=== PATIENT | female | born 1950 | race Caucasian/White ===

== ENCOUNTER 2022-01-23 08:15 | Emergency (ER) | payer MEDICARE, BC ==
[~2022-01-23] VITALS: Ht 172.7 cm; Wt 65.0 kg
--- NOTE | 2022-01-23 08:17 | NUR ---
kitty JUNIOR. Addendum: 01/23/22 at 0930 by AKIRA incorrect pt.
[2022-01-23] MEDS ORDERED: famotidine/PF 10 mg/ml inj IV ONE (08:35)
[2022-01-23] MEDS ORDERED: mag hydrox/Alum hydrox/simeth 30ml oral suspension PO ONE (08:35)
[2022-01-23] MEDS ORDERED: normal saline 1000ml 1,000 ML IV ONE (08:35)
[2022-01-23] MEDS ORDERED: ondansetron/PF 4mg/2ml inj IV ONE (08:35)
[2022-01-23] MEDS ORDERED: LIDOcaine Viscous 15ml cup MM ONE (08:35)
[2022-01-23] MEDS ORDERED: pantoprazole 40MG/NS 100ML BAG 100 ML IV ONE (08:35)
--- NOTE | 2022-01-23 09:28 | NUR ---
Beddings changed,pt repositoned and changed into a gown,requesting tylenol for sciatic pain,Dr. Castro aware.Awaiting for sw to see pt. Addendum: 01/23/22 at 0930 by AKIRA incorrect pt.
[2022-01-23 09:36] LABS: BASOPHILS % (AUTO) 0.5 % (0-1); EOSINOPHILS # (AUTO) 0.1 X10'3 (0-0.9); EOSINOPHILS % (AUTO) 0.8 % (0-6); HEMATOCRIT 34.1 % (35.0-45.0); HEMOGLOBIN 11.9 g/dl (12.0-16.0); LYMPHOCYTES # (AUTO) 0.8 X10'3 (1.1-4.8); LYMPHOCYTES % (AUTO) 10.1 % (21-51); MEAN CORPUSCULAR HEMOGLOBIN 30.4 PG (27.0-31.0); MEAN CORPUSCULAR HGB CONC 34.9 g/dL (33.0-36.5); MEAN CORPUSCULAR VOLUME 87.1 FL (78-98); MEAN PLATELET VOLUME 6.8 FL (7.4-10.4); MONOCYTES # (AUTO) 0.7 X10'3 (0-0.9); MONOCYTES % (AUTO) 8.1 % (2-12); NEUTROPHILS # (AUTO) 6.7 X10'3 (1.8-7.7); NEUTROPHILS % (AUTO) 80.5 % (42-75); PLATELET COUNT 408 X10'3 (140-440); RED BLOOD COUNT 3.92 X10'6 (4.20-5.60); RED CELL DISTRIBUTION WIDTH 13.6 % (11.5-14.5); WHITE BLOOD COUNT 8.4 X10'3 (4.5-11.0)
[2022-01-23 09:53] LABS: ALANINE AMINOTRANSFERASE 20 U/L (12-78); ALBUMIN 2.8 G/DL (3.4-5.0); ALBUMIN/GLOBULIN RATIO 0.7 (1.1-1.5); ALKALINE PHOSPHATASE 96 IU/L (46-116); ANION GAP 9 (8-16); ASPARTATE AMINO TRANSFERASE 13 U/L (10-37); BILIRUBIN,TOTAL 0.5 MG/DL (0.1-1.0); BLOOD UREA NITROGEN 13 MG/DL (7-18); BUN/CREATININE RATIO 16.9 (6.6-38.0); CALCIUM 8.7 MG/DL (8.5-10.1); CHLORIDE 102 MMOL/L (99-107); CREATININE 0.77 MG/DL (0.40-0.90); GLUCOSE 116 MG/DL (70-104); POTASSIUM 3.3 MMOL/L (3.5-5.1); SODIUM 136 MMOL/L (135-145); TOTAL CARBON DIOXIDE 24.9 MMOL/L (24-32); TOTAL PROTEIN 7.1 G/DL (6.4-8.2); eGFR 74 ML/MIN
[2022-01-23 10:00] LABS: MAGNESIUM 1.9 MG/DL (1.5-2.4)
[2022-01-23] MEDS ORDERED: PANT-47 PO (10:57)
[2022-01-23] MEDS ORDERED: ONDA8TAB13 PO (10:57)
[2022-01-23 11:24] VITALS: BP 113/72
== END 2022-01-23 11:28 | disposition home or self-care (01) ==
LOC: ER 08:16
DX: R07.9 Chest pain, unspecified (principal); Z20.822 Contact with and (suspected) exposure to COVID-19; R11.2 Nausea with vomiting, unspecified; R12 Heartburn; K21.9 Gastro-esophageal reflux disease without esophagitis; F32.A Depression, unspecified; Z79.899 Other long term (current) drug therapy
CPT/HCPCS: 36415; 71045; 80053; 83735; 83880; 84484; 85025; 85610; 93005; 96361; 96365; 96375; 99285; C9113; J2405; J3490; J7030

== ENCOUNTER 2022-05-26 13:10 | Outpatient (CLI) | payer MEDICARE, BC ==
[~2022-05-26 13:10] MED LIST: BARIUM SULFATE 700 MG TABLET PO ONE; ONDA8TAB13 PO; PANT-47 PO; barium sulfate 450ml oral suspension ONE
== END 2022-05-26 23:59 | disposition home or self-care (01) ==
LOC: RAD 13:10
PROVIDERS: ATTEND Surgery
DX: K44.9 Diaphragmatic hernia without obstruction or gangrene (principal); K22.4 Dyskinesia of esophagus
CPT/HCPCS: 74220

== ENCOUNTER 2022-08-06 06:44 | Day surgery (SDC) | payer MEDICARE, BC ==
[~2022-08-06] VITALS: Ht 170.2 cm; Wt 77.3 kg
[~2022-08-06 06:44] MED LIST changes: -BARIUM SULFATE 700 MG TABLET PO ONE; -barium sulfate 450ml oral suspension ONE
[2022-08-06 06:53] VITALS: BP 116/72
[2022-08-06] MEDS ORDERED: fentaNYL/PF 50MCG/1 ML 2ML syringe ONE (07:01)
[2022-08-06] MEDS ORDERED: MIDAZolam 1 MG/ML 5ML VIAL ONE (07:01)
[2022-08-06] MEDS ORDERED: LIDOcaine Viscous 15ml cup ONE (07:01)
[2022-08-06] MEDS ORDERED: CITA20TA28 PO (07:09)
[2022-08-06] MEDS ORDERED: BUPR75TA8 PO (07:09)
[2022-08-06] MEDS ORDERED: OMEP40CA21 PO (07:11)
[2022-08-06 07:45] VITALS: BP 115/71
[2022-08-06 07:55] VITALS: BP 116/56
[2022-08-06 08:05] VITALS: BP 114/75
[2022-08-06 08:15] VITALS: BP 125/71
== END 2022-08-06 08:20 | disposition home or self-care (01) ==
LOC: GI LAB 06:44
PROVIDERS: ATTEND Surgery
DX: K21.00 Gastro-esophageal reflux disease with esophagitis, without bleeding (principal); K44.9 Diaphragmatic hernia without obstruction or gangrene; Z98.890 Other specified postprocedural states; Z85.71 Personal history of Hodgkin lymphoma
CPT/HCPCS: 43239; J2250; J3010; J7030; Z7512; 88305; 99152; A4620

== ENCOUNTER 2023-08-31 10:22 | Observation (INO) | payer MEDICARE, BC ==
[2023-08-27 11:41] LABS: BASOPHILS % (AUTO) 0.8 % (0-1); EOSINOPHILS # (AUTO) 0.2 X10'3 (0-0.9); EOSINOPHILS % (AUTO) 3.3 % (0-6); LYMPHOCYTES # (AUTO) 1.4 X10'3 (1.1-4.8); LYMPHOCYTES % (AUTO) 25.7 % (21-51); MEAN CORPUSCULAR HEMOGLOBIN 29.8 PG (27.0-31.0); MEAN CORPUSCULAR HGB CONC 33.4 g/dL (33.0-36.5); MEAN CORPUSCULAR VOLUME 89.4 FL (78-98); MEAN PLATELET VOLUME 7.1 FL (7.4-10.4); MONOCYTES # (AUTO) 0.3 X10'3 (0-0.9); MONOCYTES % (AUTO) 6.1 % (2-12); NEUTROPHILS # (AUTO) 3.4 X10'3 (1.8-7.7); NEUTROPHILS % (AUTO) 64.1 % (42-75); PRE OP HEMATOCRIT 39.5 % (35.0-45.0); PRE OP HEMOGLOBIN 13.2 g/dL (12.0-16.0); PRE OP PLATELET COUNT 359 X10'3 (140-440); PRE OP WHITE BLOOD COUNT 5.3 10'3 (4.8-10.8); RED BLOOD COUNT 4.42 X10'6 (4.20-5.60); RED CELL DISTRIBUTION WIDTH 14.2 % (11.5-14.5)
[2023-08-27 12:14] LABS: ALBUMIN 3.4 G/DL (3.4-5.0); ALBUMIN/GLOBULIN RATIO 0.9 (1.1-1.5); ALKALINE PHOSPHATASE 101 IU/L (46-116); BLOOD UREA NITROGEN 12 MG/DL (7-18); BUN/CREATININE RATIO 16.2 (10.0-20.0); CALCIUM 8.3 MG/DL (8.5-10.1); CHLORIDE 107 MMOL/L (99-107); CREATININE 0.74 MG/DL (0.40-0.90); PRE OP ALT 19 U/L (30-65); PRE OP ANION GAP 7 (8-16); PRE OP AST 12 U/L (10-37); PRE OP BILIRUB, TOTAL 0.4 MG/DL (0.0-1.0); PRE OP GLUCOSE 90 MG/DL (70-104); PRE OP POTASSIUM 3.9 MMOL/L (3.4-5.1); PRE OP SODIUM 143 MMOL/L (135-145); TOTAL PROTEIN 7.1 G/DL (6.4-8.2); eGFR 77 ML/MIN
[2023-08-31] VITALS (36 sets, daily range): BP systolic 112–163; BP diastolic 67–127; PULSE 74–97; RESP 9–19; TEMP 97.9–98; O2SAT 94–100
[~2023-08-31] VITALS: Ht 170.2 cm; Wt 85.3 kg
[2023-08-31] MEDS: potassium CL 20mEq in D5-1/2NS 1,000 ML IV SCH (01:15)
[~2023-08-31 10:22] MED LIST changes: +BUPR-72 PO; +LIDOcaine 1% 30ml preserv. free vial ONE; -ONDA8TAB13 PO; -PANT-47 PO
[2023-08-31] MEDS: ringers solution, lacted 1,000 ML IV SCH ×2 (11:42→23:05)
[2023-08-31] MEDS: famotidine 20mg tablet PO ONE (11:43)
[2023-08-31] MEDS: cefazolin 2gm/D5W 100mL 100 ML IV ONE (11:50)
[2023-08-31] MEDS ORDERED: neostigmine methylsulfate 1 MG/ML 10ml vial ONE (12:43)
[2023-08-31] MEDS ORDERED: sevoflurane 250ml liquid IH ONE (12:43)
[2023-08-31] MEDS ORDERED: MIDAZolam 1 MG/ML 5ML VIAL ONE (12:51)
[2023-08-31] MEDS ORDERED: fentaNYL /PF 50mcg/ml 5ml ampule ONE (12:51)
[2023-08-31] MEDS ORDERED: dexamethasone sod phosphate 4mg/ml inj. ONE (12:59)
[2023-08-31] MEDS ORDERED: rocuronium 10mg/ml inj IV ONE ×2 (12:59)
[2023-08-31] MEDS ORDERED: LIDOcaine 2% (20mg/ml) 5ml vial ONE (12:59)
[2023-08-31] MEDS ORDERED: propofol inj 20 ML IV ONE (12:59)
[2023-08-31] MEDS ORDERED: glycopyrrolate 0.2mg/ml inj ONE (13:00)
[2023-08-31] MEDS ORDERED: ondansetron/PF 4mg/2ml inj ONE (13:01)
[2023-08-31] MEDS ORDERED: acetaminophen 1,000mg/100ml IV 100 ML IV ONE (13:03)
[2023-08-31] MEDS ORDERED: morphine 2 MG/ML inj. syringe IV PRN (13:20)
[2023-08-31] MEDS ORDERED: ondansetron/PF 4mg/2ml inj IV PRN ×2 (13:20→15:00)
[2023-08-31] MEDS ORDERED: fentaNYL/PF 50MCG/1 ML 2ML syringe IV PRN (13:20)
[2023-08-31] MEDS ORDERED: hydrALAZINE 20mg/ml inj. IV PRN (13:20)
[2023-08-31] MEDS ORDERED: labetalol 20mg/4ml (5mg/ml) syringe IV PRN (13:20)
[2023-08-31] MEDS: BUPIVAcaine 2.5mg/ml inj 50ml vial (contains preservative) ONE (13:54)
[2023-08-31] MEDS: LIDOcaine 1% 30ml preserv. free vial IJ ONE (13:55)
[2023-08-31] MEDS ORDERED: naloxone 0.4 mg/ml inj IV PRN (15:00)
[2023-08-31] MEDS: morphine 4 MG/ML inj SYRINge IV PRN (15:16)
[2023-08-31] MEDS: HYDROmorph/NS 0.2 mg/ml PCA 100 ML IV SCH (15:32)
[2023-08-31] MEDS: fentaNYL/PF 50MCG/1 ML 2ML syringe IV PRN (16:20)
[2023-08-31] MEDS: albuterol 2.5 MG/3 ML nebule NEB SCH (19:00)
[2023-08-31] MEDS: zolpidem 5mg tablet PO PRN (20:38)
[2023-08-31] MEDS: buPROPion SR 150mg tablet PO SCH (20:38)
[2023-08-31] MEDS: normal saline 1000ml 1,000 ML IV SCH (23:06)
[2023-09-01 02:00] VITALS: BP 121/69; PULSE 77; RESP 16; TEMP 97.8; O2SAT 93
[2023-09-01 06:00] VITALS: BP 138/69; PULSE 74; RESP 16; TEMP 97.4; O2SAT 96
[2023-09-01 07:30] VITALS: RESP 12
[2023-09-01] MEDS: oxyCODONE/APAP 5-325mg tablet PO ONE (08:06)
[2023-09-01] MEDS: enoxaparin 40mg/0.4ml syringe SQ SCH (08:07)
[2023-09-01 10:00] VITALS: BP 117/64; PULSE 71; RESP 18; TEMP 98; O2SAT 97
[2023-09-01] MEDS ORDERED: PER5325T PO (11:27)
[2023-09-01 11:50] VITALS: BP 143/94; PULSE 72; RESP 14; TEMP 98.4; O2SAT 95
[2023-09-01] MEDS: oxyCODONE/APAP 5-325mg tablet PO PRN (12:00)
== END 2023-09-01 13:47 | disposition home or self-care (01) ==
LOC: PAS 10:22 → PAS IN 14:59 → PACU 15:00 → SUR 3N 19:59
PROVIDERS: ADMIT Surgery; ATTEND Surgery
DX: K44.9 Diaphragmatic hernia without obstruction or gangrene (principal); K21.9 Gastro-esophageal reflux disease without esophagitis; M19.90 Unspecified osteoarthritis, unspecified site; F41.8 Other specified anxiety disorders; C81.90 Hodgkin lymphoma, unspecified, unspecified site; Z79.899 Other long term (current) drug therapy
CPT/HCPCS: 36415; 43282; 71045; 80053; 82948; 85025; 93005; 96365; 96366; 96372; 96375; 96376; C1781; G0378; J0131; J0690; J1100; J1170; J1650; J2250; J2270; J2405; J2704; J2710; J3010; J3480; J3490; J7120; A4615; A4618; C1758

== ENCOUNTER 2025-01-10 10:23 | Emergency (ER) | payer MEDICARE, BC ==
[~2025-01-10] VITALS: Ht 170.2 cm; Wt 73.7 kg
[~2025-01-10 10:23] MED LIST changes: -LIDOcaine 1% 30ml preserv. free vial ONE; +PER5325T PO
[2025-01-10 10:26] VITALS: O2SAT 96
[2025-01-10 10:40] VITALS: RESP 18
[2025-01-10 10:51] LABS: MEAN PLATELET VOLUME 7.2 FL (7.4-10.4); RED CELL DISTRIBUTION WIDTH 14.7 % (11.5-14.5)
[2025-01-10 10:58] LABS: CREATININE 1.19 MG/DL (0.40-0.90); TOTAL CARBON DIOXIDE 25.1 MMOL/L (24-32); eCRCL 41 ML/MIN; eGFR 44 ML/MIN
--- NOTE | 2025-01-10 11:08 | RADIOLOGY REPORT ---
CLINICAL INDICATION: WRIST PAIN TECHNIQUE: Right DI WRIST, COMPLETE (3VW MIN) Comparison: None FINDINGS/IMPRESSION: : There is no evidence of acute fracture or dislocation. Soft tissues are unremarkable. Osteopenia. Advanced degenerative changes of the radiocarpal joint space. Possible postsurgical resection or chronic erosive changes of the distal pole of the scaphoid at the 1st [facility].
--- NOTE | 2025-01-10 11:32 | ELECTROCARDIOGRAPH REPORT ---
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 David Jean Measurements Intervals [place] Rate: 59 P: 30 ND: 177 QRS: 43 QRSD: 87 T: 15 QT: 439 QTc: 435 Interpretive Statements Sinus bradycardia Electronically Signed On 01-17-2025 20:06:[address] David Jean Please click the below link to view image of tracing.
--- NOTE | 2025-01-10 11:45 | Physician Documentation ---
History of Present Illness ~ Chief Complaint: Wrist pain Stated Complaint: LOW BLOOD PRESSURE Time Seen by MD: 10:36 Primary Medical Doctor: NONE Mode of Arrival: POV, Ambulatory HPI THIS VERY PLEASANT 74-YEAR-OLD FEMALE PRESENTS TO THE ED WITH A COMPLAINT OF RIGHT WRIST PAIN AFTER FALLING YESTERDAY DUE TO HER DOG TRIPPING HER. SHE REPORTS BELIEVING SURE HER WRIST IS BROKEN. SHE HAS HAD SURGERY ON HER HAND FOR BOTH CARPAL TUNNEL ADDITIONALLY PATIENT FELT DIZZY THIS MORNING AND HER BLOOD PRESSURE READ LOW WHICH WAS CONCERNING HER.. DENIES ANY FALLS Day of Onset: Jan 10, 2025 Tetanus within 5 years: No Medication Reconciliation Allergies: Coded Allergies: No Known Allergies (Unverified , 01/10/25) Scheduled Bupropion HCl (Bupropion HCl Sr), 1 TAB PO BID, (Reported) Scheduled PRN Oxycodone Hcl/Acetaminophen 5/325 MG* (Percocet 5/325 MG*), 1 TAB PO Q4H PRN for moderate or severe pain 4-10 Past Medical History Past Medical History: GERD, Depression Past Surgical History: no surgical history Alcohol Use: None Drug Use: none Lives In: Home Review of Systems All Other Systems at this time: Reviewed and Negative ROS As stated above in the HPI, otherwise all systems are reviewed and negative. Physical Exam Vital Signs: Temperature: 98.1, Heart Rate: 63, Respiratory Rate: 18, BP: 107/67, Pulse Oximetry: 96, Weight: 73.700 Physical Exam General: Alert, no apparent distress. CARDIOVASCULAR: NORMAL RATE AND RHYTHM Extremities: Normal range of motion, no deformity. DEVELOPING ECCHYMOSIS RIGHT WRIST Neurologic: Oriented x4. Psychiatric: Normal mood and affect. Progress Results/Orders Results/Orders Orders - DAVIS ELI ISOTOPE TECHNOLOGIST Wrist, Complete (3vw Min) (01/10/25 10:30) Orthostatic Vs (01/10/25 ) Ortho Orders (01/10/25 ) Completed Orders - DAVIS ELI ISOTOPE TECHNOLOGIST Wrist, Complete (3vw Min) (01/10/25 10:30) Cbc/Diff (01/10/25 10:30) BMP (01/10/25 10:30) Electrocardiogram (01/10/25 10:30) Vital Signs 01/10/25 01/10/25 01/10/25 01/10/25 10:26 10:40 11:56 11:58 Temp 98.1 98.1 Pulse 63 62 68 73 Resp 16 18 B/P (MAP) 107/67 111/67 104/77 105/69 Pulse Ox 96 Laboratory Tests Test 01/10/25 10:42 White Blood Count 7.3 Red Blood Count 4.34 Hemoglobin 13.3 Hematocrit 38.9 Mean Corpuscular Volume 89.7 Mean Corpuscular Hemoglobin 30.6 Mean Corpuscular Hemoglobin Concent 34.1 Red Cell Distribution Width 14.7 H Platelet Count 329 Mean Platelet Volume 7.2 L Neutrophils (%) (Auto) 75.4 H Lymphocytes (%) (Auto) 16.1 L Monocytes (%) (Auto) 6.0 Eosinophils (%) (Auto) 1.6 Basophils (%) (Auto) 0.9 Neutrophils # (Auto) 5.5 Lymphocytes # (Auto) 1.2 Monocytes # (Auto) 0.4 Eosinophils # (Auto) 0.1 Basophils # (Auto) 0.1 CBC Comment Sodium Level 133 L Potassium Level 3.8 Chloride Level 101 Carbon Dioxide Level 25.1 Anion Gap 7 L Blood Urea Nitrogen 25 H Creatinine 1.19 H Estimated GFR/1.73 m2 44 BUN/Creatinine Ratio 21.0 H Glucose Level 113 H Calcium Level 8.9 Albumin 3.9 Chemistry Comments Medical Decision Making Findings Patient's wrist x-ray did not show any evidence fracture at this time. Radiologist's echoes these findings. I will place the patient in velcro wrist splint and advised her to use Voltaren for pain and inflammation labs indicate dehydration. Patient the patient about increasing fluid intake. Suspect this is what contributed to her low blood pressure today. She was reassured with these findings. Departure Disposition: HOME / SELF CARE / HOMELESS Impression: Primary Impression: Wrist joint pain Condition: Stable Discharge Instructions: Wrist Pain, Adult, Wrist Fracture Treated With Immobilization Referrals: NO PRIMARY CARE PROVIDER (PCP) Signature Scribe Signature: gv Attestation: Scribed for Davis Eli Carpet Cutter by Davis Mullen NP . 01/10/25 18:31 DAVIS ELI NP Jan 10, 2025 11:45
[2025-01-10 11:56] VITALS: BP 105/69; PULSE 73
[2025-01-10 11:58] VITALS: TEMP 98.1
== END 2025-01-10 12:02 | disposition home or self-care (01) ==
LOC: ER 10:24
DX: M25.531 Pain in right wrist (principal)
CPT/HCPCS: 29125; 36415; 73110; 80048; 85025; 93005; 99285; L3908